=== PATIENT | female | born 1985 | race Caucasian/White ===

== ENCOUNTER 2018-04-30 18:04 | Inpatient (IN) ==
[2018-04-30] MEDS ORDERED: Penicillin G Potassium Inj 5,000,000 UNIT in Sodium Chloride 0.9% Inj 100 ML IV.SIG ONE (18:51)
[2018-04-30] MEDS ORDERED: fentaNYL Citrate Inj 100 MCG/2 ML Ampul IV.PUSH PRN (18:51)
[2018-04-30] MEDS ORDERED: Sod Chloride 0.9% Inj 1,000 ML IV.CONT PRN (18:51)
[2018-04-30] MEDS ORDERED: Oxytocin 30 Units/500ml Premix 30 UNITS/500 ML BAG IV.SIG ONE (18:51)
[2018-04-30] MEDS ORDERED: Naloxone Inj 0.4 MG/ML Vial IV.PUSH PRN (18:51)
[2018-04-30] MEDS ORDERED: Sodium Chlor 0.9% Inj 500 ML IV.SIG PRN (18:51)
[2018-04-30] MEDS ORDERED: Penicillin G Potassium Inj 2,500,000 UNIT in Sodium Chlor 0.9% Inj 100 ML IV.SIG SCH (19:00)
[2018-04-30] MEDS ORDERED: Citric Acid/Sodium Citrate Liq 30 ML UDC PO SCH (19:00)
[2018-04-30 19:55] LABS: Baso % (Auto) 0.3 % (0.0-2.0); Eos % (Auto) 0.4 % (0.0-4.0); Hematocrit 34.1 % (35.0-46.0); Hemoglobin 10.9 gm/dL (11.6-15.3); Lymph # (Auto) 1.9 th/mm3 (1.0-4.8); Lymph % (Auto) 16.6 % (9.0-44.0); Mean Corpuscular Hemoglobin 24.9 pg (27.0-34.0); Mean Corpuscular Volume 77.6 fL (80.0-100.0); Mean Platelet Volume 11.3 fL (7.0-11.0); Mono # (Auto) 0.9 th/mm3 (0.0-0.9); Mono % (Auto) 7.5 % (0.0-8.0); Neut # (Auto) 8.6 th/mm3 (1.8-7.7); Neut % (Auto) 75.2 % (16.0-70.0); Platelet Count 167 th/mm3 (150-450); Red Cell Distribution Width 16.4 % (11.6-17.2); White Blood Count 11.4 th/mm3 (4.0-11.0)
[2018-04-30 20:08] LABS: Alanine Aminotransferase 11 U/L (10-53)
[2018-04-30 20:13] LABS: Alkaline Phosphatase 159 U/L (45-117); Total Protein 7.3 g/dL (6.4-8.2); Uric Acid 6.7 mg/dl (2.6-6.0)
[2018-04-30 20:23] LABS: Albumin 2.6 g/dL (3.4-5.0); Anion Gap 12 meq/L (5-15); Aspartate Aminotransferase 52 U/L (15-37); Blood Urea Nitrogen 13 mg/dL (7-18); Carbon Dioxide 19.1 meq/L (21.0-32.0); Chloride 105 meq/L (98-107); Glomerular Filtration Rate 75 mL/min (>89); Glucose,Random 125 mg/dL (74-106); Sodium 136 meq/L (136-145)
[2018-04-30 20:24] LABS: Potassium 4.7 meq/L (3.5-5.1)
[2018-04-30 21:00] LABS: Bacteria,Urine Rare /hpf; Bilirubin,Urine Negative (Negative); Clarity,Urine Hazy (Clear); Color,Urine Yellow (Yellw/Straw); Glucose,Urine (UA) Negative (Negative); Leukocyte Esterase,Urine Small (Negative); Mucus,Urine Few /lpf (Occasional); Nitrite,Urine Negative (Negative); Specific Gravity,Urine 1.027 (1.002-1.035); Squamous Epithelial Cell,Urine 8 /hpf (0-5)
[2018-04-30] MEDS ORDERED: Influenza (Quadrivalent) Vaccine 0.5 ML Syringe IM ONE (21:00)
[2018-04-30] MEDS ORDERED: Zolpidem Tartrate 5 MG Tablet PO PRN (22:09)
[2018-04-30] MEDS ORDERED: Acetaminophen 325 MG Tablet PO PRN (22:09)
[2018-05-01] MEDS: fentaNYL Citrate Inj 100 MCG/2 ML Ampul IV.PUSH PRN ×2 (02:02→05:05)
[2018-05-01 06:49] LABS: Hematocrit 34.3 % (35.0-46.0); Hemoglobin 10.8 gm/dL (11.6-15.3); Mean Corpuscular HGB Conc 31.6 % (32.0-36.0); Mean Corpuscular Hemoglobin 24.3 pg (27.0-34.0); Mean Corpuscular Volume 77.1 fL (80.0-100.0); Mean Platelet Volume 11.1 fL (7.0-11.0); Platelet Count 154 th/mm3 (150-450); Red Blood Count 4.45 mil/mm3 (4.00-5.30); Red Cell Distribution Width 16.5 % (11.6-17.2); White Blood Count 11.3 th/mm3 (4.0-11.0)
[2018-05-01 06:52] LABS: Alanine Aminotransferase 7 U/L (10-53); Albumin 2.4 g/dL (3.4-5.0); Anion Gap 12 meq/L (5-15); Aspartate Aminotransferase 12 U/L (15-37); Blood Urea Nitrogen 10 mg/dL (7-18); Calcium 9.4 mg/dL (8.5-10.1); Carbon Dioxide 22.2 meq/L (21.0-32.0); Chloride 106 meq/L (98-107); Glomerular Filtration Rate 89 mL/min (>89); Glucose,Random 70 mg/dL (74-106); Potassium 3.9 meq/L (3.5-5.1); Sodium 140 meq/L (136-145)
[2018-05-01 06:54] LABS: Alkaline Phosphatase 149 U/L (45-117); Total Protein 6.5 g/dL (6.4-8.2)
--- NOTE | 2018-05-01 06:55 | P.HPOB ---
History of Present Illness Service: obstetrics Primary Care Physician: Shabbir Bal MD Chief Complaint: postdates labor induction History of Present Illness: 32 yo G1 with EDC 04/23/18 admit 04/30/18 for postdates induction. Patient seen in office for care for total of 14 visits, starting at 14 weeks gestation. is product of IVF, has hx of vasectomy. Pt saw physicians at [facility] prior to coming to [facility] for care. Only abnormality during was diagnosis of trichomonas, was treated and negative test of cure. When seen at office visit no complaints, no contractions , no leakage of fluid, normal movement, no vaginal bleeding or discharge. On presentation to hospital BP was mildly elevated, PIH workup ordered on admission. Asymptomatic on admission. Weeks Gestation:: 41 Para: 0 : 1 - Inpatient Certification I certify that the inpatient services were ordered in accordance with Medicare regulations governing the order. This includes certification that hospital inpatient services are reasonable and necessary and in the case of services not specified as inpatient-only under 42 CFR 419.22(n), that they are appropriately provided as inpatient services in accordance to with the 2-midnight benchmark under 43 CFR 412.3(e) Estimated Total Length of Stay (Days): 6 Plans for Post Hospital Care: Home Review of Systems All other systems reviewed negative except as stated in HPI PMFSH - Medical / Surgical Hx Neg / Unobtainable Medical Problems Denied: Yes - Medical History Medical History: Medical History (Last Updated 05/01/18 @ 06:48 by Carla Branch MD) History of hysteroscopy - Family History Family History: Family History (Last Updated 05/01/18 @ 06:48 by Carla Branch MD) Other No significant family history - Social History I have reviewed the patient's Social History: Yes - Tobacco History Second Hand Smoke Exposure: No Tobacco Use In Past 30 Days: No Smoking Status: Never smoker - Travel History Recent Travel in the [place] Within the Last 8 Weeks: No Recent Travel Out of the Country Within the Last 8 Weeks: No - Immunization History Hx Influenza Vaccine This Season: No Medications and Allergies Active Medications: Active Medications Acetaminophen (Tylenol) 650 mg PO Q6H PRN PRN Reason: HEADACHE Citric Acid/Sodium Citrate (Sodium Citrate/Citric Acid Liq) 30 ml PO VENEER SAWYER JOEY Stop: 05/04/18 18:59 Fentanyl Citrate (Fentanyl Inj) 50 mcg IV.PUSH Q1H PRN PRN Reason: Pain Scale 3 - 5 Last Admin: 05/01/18 05:05 Dose: 50 mcg Fentanyl Citrate (Fentanyl Inj) 100 mcg IV.PUSH Q1H PRN PRN Reason: PAIN SCALE 6 TO 10 Lactated Ringer's (Lr 1000 Ml Inj) 1,000 mls @ 3,000 mls/hr IV.SIG UNSCH PRN PRN Reason: compromise or epidural Lactated Ringer's (Lr 1000 Ml Inj) 1,000 mls @ 125 mls/hr IV.CONT .Q8H JOEY Last Admin: 05/01/18 02:03 Dose: 125 mls/hr Sodium Chloride (Ns Inj) 500 mls @ 1,000 mls/hr IV.SIG UNSCH PRN PRN Reason: SEE LABEL COMMENTS Sodium Chloride (Ns Inj) 1,000 mls @ 100 mls/hr IV.CONT .Q10H PRN PRN Reason: SEE LABEL COMMENTS Penicillin G Potassium 5,000, (000 unit/ Sodium Chloride) 100 mls @ 200 mls/hr IV.SIG ONCE ONE Stop: 05/01/18 08:29 Penicillin G Potassium 2,500, (000 unit/ Sodium Chloride) 100 mls @ 200 mls/hr IV.SIG Q4H JOEY Lidocaine HCl (Xylocaine 1% Inj) 10 ml INFILTRATN PRN PRN PRN Reason: For episiotomy repair Stop: 05/02/18 18:50 Lidocaine HCl (Xylocaine 1% Inj) 0.1 ml I-DERMAL PRN PRN PRN Reason: For IV start Stop: 05/03/18 18:50 Mineral Oil (Muri-Lube Oil) 10 ml TOPICAL PRN PRN PRN Reason: PRN perineal massage Naloxone HCl (Narcan Inj) 0.1 mg IV.PUSH Q2M PRN PRN Reason: for opiate reversal Ondansetron HCl (Zofran Inj) 4 mg IV.PUSH Q6H PRN PRN Reason: NAUSEA Vit/Calcium/Iron/Folic Ac (Stuartnatal Plus 3) 1 tab PO DAILY JOEY Zolpidem Tartrate (Ambien) 5 mg PO HS PRN PRN Reason: INSOMNIA Last Admin: 04/30/18 23:30 Dose: 5 mg Allergies Allergy/AdvReac Type Severity Reaction Status Date / Time No Known Allergies Allergy Verified 02/28/18 09:17 Home Medications Medication Instructions Recorded Confirmed Type vit,[id number] 1 tab PO DAILY 02/28/18 04/30/18 History [PNV 29-1] Exam Vital signs: Vital Signs 04/30/18 18:24 04/30/18 18:25 04/30/18 18:55 Temperature 97.9 F Pulse Rate 122 H 125 H 98 H Respiratory Rate 20 Blood Pressure 142/91 H 137/89 04/30/18 19:00 04/30/18 19:45 04/30/18 20:00 Temperature Pulse Rate 95 H 101 H Respiratory Rate 20 20 Blood Pressure 04/30/18 21:00 04/30/18 21:55 04/30/18 22:00 Temperature Pulse Rate 98 H Respiratory Rate 18 18 Blood Pressure 153/88 H 04/30/18 22:25 04/30/18 23:25 04/30/18 23:30 Temperature Pulse Rate 111 H 87 Respiratory Rate 18 Blood Pressure 04/30/18 23:32 04/30/18 23:33 04/30/18 23:55 Temperature 98.2 F Pulse Rate 100 H 90 Respiratory Rate Blood Pressure 131/71 128/74 05/01/18 00:45 05/01/18 02:24 05/01/18 02:25 Temperature 98.7 F Pulse Rate 90 95 H Respiratory Rate 18 Blood Pressure 05/01/18 03:30 05/01/18 04:25 05/01/18 04:55 Temperature Pulse Rate 86 84 Respiratory Rate 18 Blood Pressure 05/01/18 05:08 05/01/18 05:15 05/01/18 05:25 Temperature Pulse Rate 89 Respiratory Rate 18 Blood Pressure 164/83 H 05/01/18 05:50 05/01/18 06:25 Temperature Pulse Rate 106 H 89 Respiratory Rate Blood Pressure Intake & Output 04/30/18 04/30/18 05/01/18 06:59 18:59 06:59 Intake Total 1000 / 1000 Balance 1000 / 1000 Weight 102 kg Intake: IV 1000 / 1000 LR 1000 mL Inj 1,000 ML @ 125 1000 / 1000 mls/hr IV.CONT .Q8H [facility] Rx#: [id number] - Constitutional no acute distress - Routine HEENT Exam Head: Present: normocephalic, atraumatic Eye: Present: EOMI, conjunctivae pink ENT: Present: mucous membranes moist - Routine Neck Exam Present: supple, full ROM - Routine Chest/Breast/Axilla Exam Chest wall: Absent: tenderness, mass - Routine Respiratory Exam Absent: accessory muscle use, respiratory distress - Routine Cardiovascular Exam Present: RRR. Absent: bradycardia - Routine Abdominal Exam Comments: gravid c/w dates - Routine Extremities Exam Absent: cyanosis, calf tenderness - Routine Skin Exam Present: intact. Absent: erythema - Routine Neurological Exam Present: alert, oriented X3 Results - Labs CBC & Chem 7: 04/30/18 18:45 04/30/18 18:45 Labs: Laboratory Results - last 24 hr 04/30/18 04/30/18 04/30/18 18:30 18:45 18:45 WBC 11.4 H RBC 4.40 Hgb 10.9 L Hct 34.1 L MCV 77.6 L MCH 24.9 L MCHC 32.0 RDW 16.4 Plt Count 167 MPV 11.3 H Prelim Diff (Auto) Slide review pending Neut % (Auto) 75.2 H Lymph % (Auto) 16.6 [place] % (Auto) 7.5 Eos % (Auto) 0.4 Baso % (Auto) 0.3 Neut # (Auto) 8.6 H Lymph # (Auto) 1.9 [place] # (Auto) 0.9 Eos # (Auto) 0.0 Baso # (Auto) 0.0 WBC Differential . Diff Scan Auto diff confirmed Differential Comment . Platelet Morphology Giant H Sodium Potassium Chloride Carbon Dioxide Anion Gap BUN Creatinine Estimated GFR Random Glucose Uric Acid Calcium Total Bilirubin AST ALT Alkaline Phosphatase Total Protein Albumin Urine Color Yellow Urine Clarity Hazy H Urine pH 5.0 Ur Specific [place] 1.027 Urine Protein 100 H Urine Glucose (UA) Negative Urine Ketones Negative Urine Occult Blood Moderate H Urine Nitrate Negative Urine Bilirubin Negative Urine Urobilinogen Less than 2 Ur Leukocyte Esterase Small H Urine RBC 22 H Urine WBC 6 H Ur Squamous Epith Cells 8 Urine Bacteria Rare H Urine Mucus Few H Micro UA Comment Culture not ind Ur Microscopic Review Not Reportable Urine Culture Comments Culture not ind Blood Type O Positive Blood Type Recheck Required 04/30/18 18:45 WBC RBC Hgb Hct MCV MCH MCHC RDW Plt Count MPV Prelim Diff (Auto) Neut % (Auto) Lymph % (Auto) [place] % (Auto) Eos % (Auto) Baso % (Auto) Neut # (Auto) Lymph # (Auto) [place] # (Auto) Eos # (Auto) Baso # (Auto) WBC Differential Diff Scan Differential Comment Platelet Morphology Sodium 136 Potassium 4.7 Chloride 105 Carbon Dioxide 19.1 L Anion Gap 12 BUN 13 Creatinine 0.87 Estimated GFR 75 L Random Glucose 125 H Uric Acid 6.7 H Calcium 9.0 Total Bilirubin 0.2 AST 52 H ALT 11 Alkaline Phosphatase 159 H Total Protein 7.3 Albumin 2.6 L Urine Color Urine Clarity Urine pH Ur Specific [place] Urine Protein Urine Glucose (UA) Urine Ketones Urine Occult Blood Urine Nitrate Urine Bilirubin Urine Urobilinogen Ur Leukocyte Esterase Urine RBC Urine WBC Ur Squamous Epith Cells Urine Bacteria Urine Mucus Micro UA Comment Ur Microscopic Review Urine Culture Comments Blood Type Blood Type Recheck Group B Strep: Positive Caprini VTE Risk Assessment Caprini VTE Risk Assessment: No/Low Risk (score <= 1) VTE Pharmacological Exception Reason: Epidural catheter Caprini Risk Assessment Model: Point Value = 1 Point Value = 2 Point Value = 3 Point Value = 5 Age 41-60 Minor surgery BMI > 25 kg/m2 Swollen legs Varicose veins or History of unexplained or recurrent spontaneous Oral contraceptives or hormone replacement Sepsis (< 1 month) Serious lung disease, including pneumonia (< 1 month) Abnormal pulmonary function Acute myocardial infarction Congestive heart failure (< 1 month) History of inflammatory bowel disease Medical patient at bed rest Age 61-74 Arthroscopic surgery Major open surgery (> 45 min) Laparoscopic surgery (> 45 min) Malignancy Confined to bed (> 72 hours) Immobilizing plaster cast Central venous access Age >= 75 History of VTE Family history of VTE Factor V Leiden Prothrombin [id number] Lupus anticoagulant Anticardiolipin antibodies Elevated serum homocysteine Heparin-induced thrombocytopenia Other congenital or acquired thrombophilia Stroke (< 1 month) Elective arthroplasty Hip, pelvis, or leg fracture Acute spinal cord injury (< 1 month) Prophylaxis Regimen: Total Risk Factor Score Risk Level Prophylaxis Regimen 0-1 Low Early ambulation 2 Moderate Order ONE of the following: *Sequential Compression Device (SCD) *Heparin 5000 units SQ BID 3-4 Higher Order ONE of the following medications: *Heparin 5000 units SQ TID *Enoxaparin/Lovenox 40 mg SQ daily (WT < 150 kg, CrCl > 30 mL/min) *Enoxaparin/Lovenox 30 mg SQ daily (WT < 150 kg, CrCl > 10-29 mL/min) *Enoxaparin/Lovenox 30 mg SQ BID (WT < 150 kg, CrCl > 30 mL/min) AND/OR *Sequential Compression Device (SCD) 5 or more Highest Order ONE of the following medications: *Heparin 5000 units SQ TID (Preferred with Epidurals) *Enoxaparin/Lovenox 40 mg SQ daily (WT < 150 kg, CrCl > 30 mL/min) *Enoxaparin/Lovenox 30 mg SQ daily (WT < 150 kg, CrCl > 10-29 mL/min) *Enoxaparin/Lovenox 30 mg SQ BID (WT < 150 kg, CrCl > 30 mL/min) AND *Sequential Compression Device (SCD) Assessment and Plan - Diagnosis (1) 41 weeks gestation of Code(s): Z3A.41 - 41 weeks gestation of Status: Acute (2) conceived through in vitro fertilization Code(s): O09.819 - Supervision of resulting from assisted reproductive technology, unspecified trimester Status: Chronic - Plan 32 yo G1 admitted 04/30/18 at 41wks by IVF (EDC 04/23/18) for labor induction due to postdates. 1) postdates IOL: cervidil overnight, will re-evaluate for additional induction methods as needed in AM; pt aware that cervical exam very unfavorable and induction may be long process, also possibility of ; consents signed 2) GBS positive - for PCN ppx 3) product of IVF: female embryo, had negative testing on embryo at [facility] prior to transfer 4) hx of trichomonas in : s/p treatment with negative test of cure 5) mild range BPs on admit: PIH workup ordered, no signs/symptoms of severity at this time, continue to monitor closely 6) status: female, vertex, 8/8 BPP in office 04/28/18; anterior placenta, vertex fetus; SANNA 11cm. dispo: not meeting criteria; anticipate 2-3d PP Discharge Planning: routine, 2-3d PP (2) conceived through in vitro fertilization Qualifiers: Trimester: third trimester Qualified Code(s): O09.813 - Supervision of resulting from assisted reproductive technology, third trimester
[2018-05-01] MEDS ORDERED: Penicillin G Potassium Inj 5,000,000 UNIT in Sodium Chloride 0.9% Inj 100 ML IV.SIG ONE (08:00)
[2018-05-01] MEDS ORDERED: Penicillin G Potassium Inj 2,500,000 UNIT in Sodium Chlor 0.9% Inj 100 ML IV.SIG SCH (12:00)
[2018-05-01] MEDS ORDERED: Oxytocin 30 Units/500ml Premix 30 UNITS/500 ML BAG IV.CONT PRN (13:21)
[2018-05-01] MEDS: Prenatal Vit/Ca/Iron/Folic Acid Tablet PO SCH (13:47)
[2018-05-01] MEDS ORDERED: fentaNYL 2MCG-Bupiv 0.125% Epi 150 ML EPIDURAL ONE (14:58)
[2018-05-01] MEDS: fentaNYL 2MCG-Bupiv 0.125% Epi 150 ML EPIDURAL PRN (15:25)
[2018-05-01] MEDS ORDERED: Sodium Chlor 0.9% Inj 10 ML ONE (15:34)
[2018-05-01] MEDS ORDERED: Lidocaine PF 1% Inj 5 ML Vial ONE (15:34)
[2018-05-01] MEDS ORDERED: Lidocaaine 1.5%/Epinephrine 1:200,000 PF Inj 5 ML Amp ONE (15:35)
[2018-05-01] MEDS ORDERED: fentaNYL Citrate Inj 100 MCG/2 ML Ampul EPIDURAL ONE (16:00)
[2018-05-01] MEDS: Penicillin G Potassium Inj 2,500,000 UNIT in Sodium Chlor 0.9% Inj 100 ML IV.SIG SCH ×2 (17:03→20:54)
--- NOTE | 2018-05-01 17:13 | P.OBLABOR ---
Subjective Interval history: Seen at 1pm and comfortable with occasioanl UC's. Strip category 1 at that time. AROM 3 cm/80/-2 and noted moderate thick meconium. started on pitocin 04/15/19 and birthing. Eventually got epidural and now on side. Objective Vital Signs: Vital Signs - 8 hr 05/01/18 09:25 05/01/18 10:58 05/01/18 11:56 Temperature Pulse Rate 100 H 101 H 110 H Respiratory Rate 18 20 Blood Pressure 147/82 H 138/81 05/01/18 12:45 05/01/18 12:49 05/01/18 12:50 Temperature Pulse Rate 81 104 H Respiratory Rate 18 Blood Pressure 05/01/18 12:55 05/01/18 13:00 05/01/18 13:20 Temperature 98.7 F Pulse Rate 104 H 103 H Respiratory Rate Blood Pressure 05/01/18 13:50 05/01/18 14:00 05/01/18 14:40 Temperature Pulse Rate 108 H 100 H Respiratory Rate 18 Blood Pressure 149/95 H 05/01/18 14:47 05/01/18 15:00 05/01/18 16:00 Temperature 98.0 F Pulse Rate 108 H 122 H Respiratory Rate 18 18 Blood Pressure 145/96 H 118/64 05/01/18 16:10 05/01/18 16:28 05/01/18 17:00 Temperature 98.0 F Pulse Rate 108 H 133 H 106 H Respiratory Rate 18 Blood Pressure 153/104 H 101/51 L 109/58 L Objective: Pelvic Exam: strip category 2 minimal BTBV at this (likely sleep cycle) better earlier. 4-5/90/-2 and is ROP EWF is 8 pounds pelvis is unproven clinically adequate but need to see some descent. Assessment and Plan - Diagnosis (1) 41 weeks gestation of Code(s): Z3A.41 - 41 weeks gestation of Status: Acute (2) conceived through in vitro fertilization Code(s): O09.819 - Supervision of resulting from assisted reproductive technology, unspecified trimester Status: Chronic - Plan 32 yo G1 admitted 04/30/18 at 41wks by IVF (EDC 04/23/18) for labor induction due to postdates. 1) postdates IOL: cervidil overnight, will re-evaluate for additional induction methods as needed in AM; pt aware that cervical exam very unfavorable and induction may be long process, also possibility of ; consents signed 2) GBS positive - for PCN ppx 3) product of IVF: female embryo, had negative testing on embryo at [facility] prior to transfer 4) hx of trichomonas in : s/p treatment with negative test of cure 5) mild range BPs on admit: PIH workup ordered, no signs/symptoms of severity at this time, continue to monitor closely 6) status: female, vertex, 8/8 BPP in office 04/28/18; anterior placenta, vertex fetus; SANNA 11cm. dispo: not meeting criteria; anticipate 2-3d PP 05/01/18 dilating on pitocin but yet to descent turning frequently to help rotate to OA strip bears watching Discharge Planning: routine, 2-3d PP (2) conceived through in vitro fertilization Qualifiers: Trimester: third trimester Qualified Code(s): O09.813 - Supervision of resulting from assisted reproductive technology, third trimester
[2018-05-02] MEDS: fentaNYL 2MCG-Bupiv 0.125% Epi 150 ML EPIDURAL PRN (01:15)
[2018-05-02] MEDS: Penicillin G Potassium Inj 2,500,000 UNIT in Sodium Chlor 0.9% Inj 100 ML IV.SIG SCH ×3 (01:25→13:08)
[2018-05-02] MEDS ORDERED: Lidocaine PF 1.5% Inj 20 ML Ampule ONE (03:32)
[2018-05-02] MEDS ORDERED: ceFAZolin 2 GM Premix Inj 2 GM/50 ML PIGGYBACK IV.SIG PRN (03:42)
[2018-05-02] MEDS ORDERED: Citric Acid/Sodium Citrate Liq 30 ML UDC PO SCH (03:45)
--- NOTE | 2018-05-02 04:52 | P.OBGPN ---
called at ~3:30 with report that axillary temp 100, no further dilation or descent and decision made to call arrest of descent and proceed to back. Parents were appraised earlier of possibility, risks, necessity and expected outcome. Strip was still reassuring.
[2018-05-02] MEDS ORDERED: Oxytocin 30 Units/500ml Premix 30 UNITS/500 ML BAG IV.SIG ONE (04:56)
[2018-05-02] MEDS ORDERED: Zolpidem Tartrate 5 MG Tablet PO PRN (04:56)
[2018-05-02] MEDS ORDERED: Simethicone 80 MG Chew Tablet PO PRN (04:56)
--- NOTE | 2018-05-02 04:56 | P.OBDELI ---
Procedure Note - Pre Op Diagnosis (1) Arrest of descent, delivered, current hospitalization (2) 41 weeks gestation of - Post Op Diagnosis (1) delivery delivered Performed by: Isabella Coffey MD Procedure: Primary Low Transverse Section Indication for Delivery: Other (arrest of descent) Informed Consent Obtained: For anesthesia, For procedure Confirmed Correct: Patient, Procedure, Site, Time-out taken Anesthesia: Epidural Medication Prior to Procedure: As documented in eMAR Monitoring During Procedure: Blood pressure monitoring, case monitor, Pulse oximetry Urinary Catheter: Inserted using sterile technique, To dependent drainage Sterile Preparation: Duraprep, In usual fashion Position: Supine with wedge to right side - Operative Features Skin Incision: Pfannenstiel Membranes Ruptured: Previously, Appearance of fluid (clear despite presence of meconium at initial AROM at noon) Presentation: Occiput anterior Status of Infant: Viable, Cord blood, Nursery present Placenta Delivered: Intact Medications: Antibiotics, Oxytocin Estimated blood loss (mL): 500 Procedure Tolerated: Well Maternal Complications: Fever Maternal Condition: Stable Baby Condition: Stable - Infant : Female Infant Female A Infant Delivery Date: 05/02/18 Infant Delivery Time: 04:55 Weight: 3.4 kg score (1 min): 8 score (5 min): 9
--- NOTE | 2018-05-02 05:41 | MP ---
cc: Isabella Coffey MD DATE OF OPERATION: 05/02/2018 PREOPERATIVE DIAGNOSES: A 41-week intrauterine with induction, thin meconium, arrest of descent and mild temperature. POSTOPERATIVE DIAGNOSES: A 41-week intrauterine with induction, thin meconium, arrest of descent, mild temperature, delivered. PROCEDURE PERFORMED: Primary low transverse segment section. ANESTHESIA: Epidural with Duramorph. SURGEON: Isabella Coffey MD IT APPLICATIONS ANALYST: Jinny Brady. FINDINGS: A living female was delivered from OA position with what appeared to be clear fluid after earlier meconium and a body cord. Apgars were 8 at 1 and 9 at 5. The cord had delayed 45-second clamping before it was cut. Baby weighed 8 pounds 10 ounces, was slightly warm. The placenta was delivered from anterior position intact with 3-vessel cord. Estimated blood loss was about 500 mL. Sponge, instrument and needle counts were correct. Anatomy was unremarkable. Mom and baby tolerated the procedure well and went to the recovery room stable. DESCRIPTION OF PROCEDURE: The patient and had been appraised earlier in the night of the possibility of a and what would be the indication should we call that. At 3:30, her nurse called saying that she had no further dilation or descent and was developing a low-grade fever. The decision was made to proceed with section and she was taken to the back where her epidural was reinforced. Her Vanegas catheter was already in place. Sequential stockings were put on. She received 3 grams of Ancef IV. She was prepped and draped in the usual sterile fashion. A timeout was performed. After assuring adequate analgesia, a Pfannenstiel incision was made with a knife and carried down through to the rectus fascia using the Bovie on cutting. The rectus fascia was then incised in an elliptical fashion and taken sharply off the rectus muscle. The rectus muscle was bluntly and the parietal peritoneum bluntly entered. A bladder flap was created off the lower uterine segment and an incision made into the intrauterine cavity. This was extended vertically in a blunt fashion and then the was delivered with Kiwi assistance. She had a spontaneous cry on the abdomen. The cord was allowed to pulse, but not milked for 45 seconds, and then it was clamped x2, cut, and she was handed to the neonatology team and attending. Cord blood was obtained. The placenta was then removed. The uterus was exteriorized, cleaned with a lap sponge, and closed with chromic in a running interlocking fashion with a second horizontal imbricating suture. The incision was noted to be hemostatic and the anatomy was noted to be unremarkable. The uterus was replaced in the abdominal cavity and irrigation was performed. The incision was rechecked for hemostasis. Then, the rectus muscle was approximated loosely with care to avoid underlying structures. The fascia was closed with #1 Vicryl. The subcutaneous layer was closed with 3-0 plain and the skin was closed with a Monocryl on a Randal needle. Steri-Strips and Primapore were placed. Sponge, instrument, and needle count were correct. She tolerated the procedure well and she went to the recovery room in stable condition. MD CAIN Blandon/abdon , 05:02 AM , 05:09 AM
[2018-05-02] MEDS ORDERED: Oxytocin 30 Units/500ml Premix 30 UNITS/500 ML BAG ONE (05:44)
[2018-05-02] MEDS ORDERED: Naloxone Inj 0.4 MG/ML Vial IV.PUSH PRN (06:36)
[2018-05-02] MEDS: Prenatal Vit/Ca/Iron/Folic Acid Tablet PO SCH (09:44)
[2018-05-02] MEDS: Senna/Docusate Sodium 8.6/50 MG Tablet PO PRN ×2 (09:45→21:52)
[2018-05-02] MEDS ORDERED: Oxytocin 30 Units/500ml Premix 30 UNITS/500 ML BAG IV.SIG PRN (09:56)
--- NOTE | 2018-05-02 14:16 | P.PNOB ---
Subjective Post op day: 0 Interval history: doing remarkable well no pain nursing Objective Vital Signs/I&O: Vital Signs 05/01/18 14:40 05/01/18 14:47 05/01/18 15:00 Temperature 98.0 F Pulse Rate 100 H 108 H Respiratory Rate 18 Blood Pressure 145/96 H 05/01/18 16:00 05/01/18 16:10 05/01/18 16:28 Temperature Pulse Rate 122 H 108 H 133 H Respiratory Rate 18 18 Blood Pressure 118/64 153/104 H 101/51 L 05/01/18 17:00 05/01/18 17:10 05/01/18 17:25 Temperature 98.0 F Pulse Rate 106 H 94 H 118 H Respiratory Rate Blood Pressure 109/58 L 108/49 L 140/81 05/01/18 17:30 05/01/18 18:01 05/01/18 18:25 Temperature Pulse Rate 122 H 117 H Respiratory Rate Blood Pressure 125/79 122/72 05/01/18 19:40 05/01/18 19:45 05/01/18 19:49 Temperature 98.0 F Pulse Rate 109 H 118 H Respiratory Rate 18 Blood Pressure 132/77 122/68 05/01/18 19:50 05/01/18 19:55 05/01/18 20:00 Temperature Pulse Rate 118 H 124 H 169 H Respiratory Rate Blood Pressure 05/01/18 20:10 05/01/18 20:29 05/01/18 20:30 Temperature Pulse Rate 132 H 109 H 109 H Respiratory Rate 18 Blood Pressure 146/78 H 142/102 H 05/01/18 20:35 05/01/18 20:40 05/01/18 20:45 Temperature Pulse Rate 112 H 114 H 111 H Respiratory Rate Blood Pressure 05/01/18 20:55 05/01/18 20:56 05/01/18 21:01 Temperature Pulse Rate 98 H 114 H Respiratory Rate 18 Blood Pressure 146/83 H 05/01/18 21:15 05/01/18 21:31 05/01/18 21:35 Temperature Pulse Rate 98 H 104 H 103 H Respiratory Rate Blood Pressure 142/84 H 05/01/18 21:40 05/01/18 21:45 05/01/18 21:50 Temperature Pulse Rate 99 H 94 H 100 H Respiratory Rate Blood Pressure 05/01/18 22:05 05/01/18 22:12 05/01/18 22:30 Temperature 97.4 F L Pulse Rate 109 H 104 H Respiratory Rate 18 Blood Pressure 143/88 H 132/81 05/01/18 22:45 05/01/18 23:00 05/01/18 23:20 Temperature 98.4 F Pulse Rate 110 H Respiratory Rate 16 18 Blood Pressure 137/81 05/01/18 23:30 05/02/18 00:00 05/02/18 00:11 Temperature Pulse Rate 107 H 103 H Respiratory Rate 18 Blood Pressure 134/72 121/71 05/02/18 00:30 05/02/18 01:00 05/02/18 01:23 Temperature Pulse Rate 114 H 110 H Respiratory Rate 18 18 Blood Pressure 139/94 H 139/77 05/02/18 01:24 05/02/18 01:30 05/02/18 02:00 Temperature 97.7 F Pulse Rate 114 H Respiratory Rate 18 Blood Pressure 142/83 H 05/02/18 02:05 05/02/18 02:10 05/02/18 02:31 Temperature 98.3 F Pulse Rate 117 H 109 H Respiratory Rate Blood Pressure 128/71 150/75 H 05/02/18 03:01 05/02/18 03:15 05/02/18 03:20 Temperature 98.4 F 100.0 F H Pulse Rate 110 H Respiratory Rate Blood Pressure 155/66 H 05/02/18 03:31 05/02/18 05:00 05/02/18 05:11 Temperature 97.8 F Pulse Rate 117 H 98 H 100 H Respiratory Rate 20 18 Blood Pressure 149/90 H 106/55 L 103/52 L 05/02/18 05:17 05/02/18 05:31 05/02/18 05:45 Temperature 97.6 F Pulse Rate 103 H 102 H Respiratory Rate 16 18 Blood Pressure 100/58 L 101/53 L 05/02/18 06:25 05/02/18 11:00 Temperature Pulse Rate 93 H 105 H Respiratory Rate 17 Blood Pressure 138/81 144/87 H Intake & Output 05/01/18 05/02/18 05/02/18 18:59 06:59 18:59 Intake Total 2099 1100 / 1100 Balance 2099 1100 / 1100 Intake: IV 2099 1100 / 1100 LR 1000 mL Inj 1,000 ML @ 125 2000 / 2000 1000 / 1000 mls/hr IV.CONT .Q8H [facility] Rx#: [id number] Pfizerpen-G Inj 2,500,000 UNIT 100 / 100 100 / 100 In NS Inj 100 ML @ 200 mls/hr IV.SIG Q4H [facility] Rx#:[id number] Result Diagrams: 05/01/18 05:43 05/01/18 05:43 Objective Remarks: GENERAL: Well-nourished, well-developed patient. CARDIOVASCULAR: Regular rate and rhythm without murmurs, gallops, or rubs. RESPIRATORY: Breath sounds equal bilaterally. No accessory muscle use. ABDOMEN/GI: Abdomen soft, non-tender, bowel sounds present. bandage Clean, dry and intact. Fundus: Firm, non-tender at umbilicus. GENITOURINARY: Light to moderate bleeding. EXTREMITIES: No cyanosis or edema, non-tender, without signs of DVT. Medications and IVs: Active Medications Acetaminophen (Tylenol) 650 mg PO Q6H PRN PRN Reason: HEADACHE Citric Acid/Sodium Citrate (Sodium Citrate/Citric Acid Liq) 30 ml PO DIFFUSER OPERATOR [facility] Stop: 05/04/18 18:59 Citric Acid/Sodium Citrate (Sodium Citrate/Citric Acid Liq) 30 ml PO DIFFUSER OPERATOR [facility] Stop: 05/06/18 03:44 Diphenhydramine HCl (Benadryl Inj) 25 mg IV.PUSH Q6H PRN PRN Reason: MILD TO MODERATE ITCHING Stop: 05/03/18 06:35 Diphenhydramine HCl (Benadryl) 50 mg PO Q6H PRN PRN Reason: MILD TO MODERATE ITCHING Stop: 05/03/18 06:35 Diphtheria/Pertussis/Tetanus Vacc (Boostrix Vaccine Inj) 0.5 ml IM .ONCE ONE Stop: 05/03/18 16:01 Ephedrine Sulfate (Ephedrine/Ns Syringe) 10 mg IV.PUSH UNSCH PRN PRN Reason: SEE LABEL COMMENTS Stop: 05/02/18 15:52 Fentanyl Citrate (Fentanyl Inj) 50 mcg IV.PUSH Q1H PRN PRN Reason: Pain Scale 3 - 5 Last Admin: 05/01/18 05:05 Dose: 50 mcg Fentanyl Citrate (Fentanyl Inj) 100 mcg IV.PUSH Q1H PRN PRN Reason: PAIN SCALE 6 TO 10 Lactated Ringer's (Lr 1000 Ml Inj) 1,000 mls @ 3,000 mls/hr IV.SIG UNSCH PRN PRN Reason: compromise or epidural Lactated Ringer's (Lr 1000 Ml Inj) 1,000 mls @ 125 mls/hr IV.CONT .Q8H [facility] Last Admin: 05/02/18 13:07 Dose: Not Given Sodium Chloride (Ns Inj) 500 mls @ 1,000 mls/hr IV.SIG UNSCH PRN PRN Reason: SEE LABEL COMMENTS Sodium Chloride (Ns Inj) 1,000 mls @ 100 mls/hr IV.CONT .Q10H PRN PRN Reason: SEE LABEL COMMENTS Oxytocin (Pitocin 30 Units/Ns 500 Ml Premix) 30 units in 500 mls @ 2 mls/hr IV.CONT TITRATE PRN; Protocol PRN Reason: For induction of labor Last Admin: 05/01/18 13:45 Dose: 2 milliunit/min, 2 mls/hr Penicillin G Potassium 2,500, (000 unit/ Sodium Chloride) 100 mls @ 200 mls/hr IV.SIG Q4H [facility] Last Admin: 05/02/18 13:08 Dose: Not Given Fentanyl/Bupivacaine/Sodium Chlor (Fentanyl 2 Mcg-Bupiv 0.125% Epi) 150 mls @ 12 mls/hr EPIDURAL PRN PRN PRN Reason: for Labor Pain Last Admin: 05/02/18 01:15 Dose: 12 mls/hr Cefazolin Sodium/Dextrose (Ancef 2 Gm Premix Inj) 2 gm in 50 mls @ 100 mls/hr IV.SIG DIFFUSER OPERATOR PRN PRN Reason: DIFFUSER OPERATOR Stop: 05/06/18 03:41 Lactated Ringer's (Lr 1000 Ml Inj) 1,000 mls @ 150 mls/hr IV.CONT .Q6H40M [facility] Last Admin: 05/02/18 13:08 Dose: Not Given Lactated Ringer's (Lr 1000 Ml Inj) 1,000 mls @ 100 mls/hr IV.CONT .Q10H [facility] Stop: 05/03/18 05:55 Last Admin: 05/02/18 13:07 Dose: 100 mls/hr Oxytocin (Pitocin 30 Units/Ns 500 Ml Premix) 30 units in 500 mls @ 100 mls/hr IV.SIG UNSCH PRN PRN Reason: Heavy bleeding Ibuprofen (Motrin) 800 mg PO Q8H PRN PRN Reason: cramping Last Admin: 05/02/18 13:39 Dose: 800 mg Ketorolac Tromethamine (Toradol Inj) 30 mg IM Q6H PRN PRN Reason: SEE LABEL COMMENTS Lidocaine HCl (Xylocaine 1% Inj) 10 ml INFILTRATN PRN PRN PRN Reason: For episiotomy repair Stop: 05/02/18 18:50 Lidocaine HCl (Xylocaine 1% Inj) 0.1 ml I-DERMAL PRN PRN PRN Reason: For IV start Stop: 05/03/18 18:50 Measles/Mumps/Rubella Vaccine Live (M-M-R Ii Vaccine Inj) 0.5 ml SQ .ONCE ONE Stop: 05/03/18 16:01 Mineral Oil (Muri-Lube Oil) 10 ml TOPICAL PRN PRN PRN Reason: PRN perineal massage Miscellaneous Information (Misc Information) 1 each OTHER UNSCH PRN PRN Reason: SEE LABEL COMMENTS Stop: 05/02/18 15:52 Miscellaneous Information (Misc Information) 1 each OTHER UNSCH PRN PRN Reason: SEE LABEL COMMENTS Stop: 05/02/18 15:52 Miscellaneous Information (Misc Nursing Information) 1 each OTHER UNSCH PRN PRN Reason: SEE LABEL COMMENTS Stop: 05/03/18 06:35 Miscellaneous Information (Misc Nursing Information) 1 each OTHER UNSCH PRN PRN Reason: SEE LABEL COMMENTS Stop: 05/03/18 06:35 Naloxone HCl (Narcan Inj) 0.1 mg IV.PUSH Q2M PRN PRN Reason: for opiate reversal Naloxone HCl (Narcan Inj) 0.4 mg IV.PUSH UNSCH PRN PRN Reason: SEE LABEL COMMENTS Stop: 05/03/18 06:35 Ondansetron HCl (Zofran Inj) 4 mg IV.PUSH Q6H PRN PRN Reason: NAUSEA Ondansetron HCl (Zofran Inj) 4 mg IV.PUSH Q6H PRN PRN Reason: NAUSEA OR VOMITING Oxycodone/Acetaminophen (Percocet 5/325 Mg) 1 tab PO Q4H PRN PRN Reason: PAIN SCALE 3 TO 5 Last Admin: 05/02/18 13:39 Dose: 1 tab Oxycodone/Acetaminophen (Percocet 5/325 Mg) 2 tab PO Q4H PRN PRN Reason: PAIN SCALE 6 TO 10 Vit/Calcium/Iron/Folic Ac (Stuartnatal Plus 3) 1 tab PO DAILY [facility] Last Admin: 05/02/18 09:44 Dose: 1 tab Senna/Docusate Sodium (Francine-Colace) 2 tab PO Q12H PRN PRN Reason: CONSTIPATION Last Admin: 05/02/18 09:45 Dose: 2 tab Simethicone (Mylicon Chew) 80 mg PO QID PRN PRN Reason: FLATULENCE Sodium Chloride (Ns Flush) 2 ml IV.FLUSH BID [facility] Last Admin: 05/02/18 13:07 Dose: Not Given Sodium Chloride (Ns Flush) 2 ml IV.FLUSH PRN PRN PRN Reason: FLUSH AFTER USING IV ACCESS Zolpidem Tartrate (Ambien) 5 mg PO HS PRN PRN Reason: INSOMNIA Last Admin: 04/30/18 23:30 Dose: 5 mg Zolpidem Tartrate (Ambien) 5 mg PO HS PRN PRN Reason: INSOMNIA Assessment and Plan - Diagnosis (1) 41 weeks gestation of Code(s): Z3A.41 - 41 weeks gestation of Status: Acute (2) conceived through in vitro fertilization Code(s): O09.819 - Supervision of resulting from assisted reproductive technology, unspecified trimester Status: Chronic - Plan 32 yo G1 admitted 04/30/18 at 41wks by IVF (EDC 04/23/18) for labor induction due to postdates. 1) postdates IOL: cervidil overnight, will re-evaluate for additional induction methods as needed in AM; pt aware that cervical exam very unfavorable and induction may be long process, also possibility of ; consents signed 2) GBS positive - for PCN ppx 3) product of IVF: female embryo, had negative testing on embryo at [facility] prior to transfer 4) hx of trichomonas in : s/p treatment with negative test of cure 5) mild range BPs on admit: PIH workup ordered, no signs/symptoms of severity at this time, continue to monitor closely 6) status: female, vertex, 8/8 BPP in office 04/28/18; anterior placenta, vertex fetus; SANNA 11cm. dispo: not meeting criteria; anticipate 2-3d PP 05/01/18 dilating on pitocin but yet to descent turning frequently to help rotate to OA strip bears watching 05/02/18 doing well after section for failure to descend 10 hours ago. anticipate discharge POD 2-3 Discharge Planning: routine, 2-3d PP (2) conceived through in vitro fertilization Qualifiers: Trimester: third trimester Qualified Code(s): O09.813 - Supervision of resulting from assisted reproductive technology, third trimester
[2018-05-03 05:23] LABS: Baso % (Auto) 0.3 % (0.0-2.0); Eos # (Auto) 0.1 th/mm3 (0.0-0.4); Eos % (Auto) 0.7 % (0.0-4.0); Hematocrit 29.6 % (35.0-46.0); Hemoglobin 9.6 gm/dL (11.6-15.3); Lymph # (Auto) 1.8 th/mm3 (1.0-4.8); Lymph % (Auto) 16.1 % (9.0-44.0); Mean Corpuscular HGB Conc 32.3 % (32.0-36.0); Mean Corpuscular Hemoglobin 24.9 pg (27.0-34.0); Mean Platelet Volume 11.1 fL (7.0-11.0); Mono # (Auto) 0.9 th/mm3 (0.0-0.9); Neut # (Auto) 8.2 th/mm3 (1.8-7.7); Neut % (Auto) 74.9 % (16.0-70.0); Platelet Count 142 th/mm3 (150-450); Red Blood Count 3.85 mil/mm3 (4.00-5.30); Red Cell Distribution Width 16.7 % (11.6-17.2); White Blood Count 10.9 th/mm3 (4.0-11.0)
[2018-05-03 08:05] VITALS: RESP 18
[2018-05-03] MEDS: Prenatal Vit/Ca/Iron/Folic Acid Tablet PO SCH (10:33)
--- NOTE | 2018-05-03 10:44 | P.PNOB ---
Subjective Post op day: 1 Interval history: POD#1; s/P CD; Stable, doing well Objective Vital Signs/I&O: Vital Signs 05/02/18 11:00 05/02/18 20:30 05/02/18 23:30 Temperature 97.8 F 97.8 F Pulse Rate 105 H 83 86 Respiratory Rate 18 18 Blood Pressure 144/87 H 142/94 H 146/96 H 05/03/18 04:45 05/03/18 08:00 Temperature 98.0 F 97.7 F Pulse Rate 85 83 Respiratory Rate 20 18 Blood Pressure 129/78 132/81 Result Diagrams: 05/03/18 04:43 05/01/18 05:43 Objective Remarks: GENERAL: Well-nourished, well-developed patient. CARDIOVASCULAR: Regular rate and rhythm without murmurs, gallops, or rubs. RESPIRATORY: Breath sounds equal bilaterally. No accessory muscle use. ABDOMEN/GI: Abdomen soft, non-tender, bowel sounds present. Incision: Clean, dry and intact. Fundus: Firm, non-tender at umbilicus. GENITOURINARY: Light to moderate bleeding. EXTREMITIES: No cyanosis or edema, non-tender, without signs of DVT. Medications and IVs: Active Medications Acetaminophen (Tylenol) 650 mg PO Q6H PRN PRN Reason: HEADACHE Citric Acid/Sodium Citrate (Sodium Citrate/Citric Acid Liq) 30 ml PO GANG SAWYER [facility] Stop: 05/04/18 18:59 Citric Acid/Sodium Citrate (Sodium Citrate/Citric Acid Liq) 30 ml PO GANG SAWYER [facility] Stop: 05/06/18 03:44 Diphtheria/Pertussis/Tetanus Vacc (Boostrix Vaccine Inj) 0.5 ml IM .ONCE ONE Stop: 05/03/18 16:01 Fentanyl Citrate (Fentanyl Inj) 50 mcg IV.PUSH Q1H PRN PRN Reason: Pain Scale 3 - 5 Last Admin: 05/01/18 05:05 Dose: 50 mcg Fentanyl Citrate (Fentanyl Inj) 100 mcg IV.PUSH Q1H PRN PRN Reason: PAIN SCALE 6 TO 10 Lactated Ringer's (Lr 1000 Ml Inj) 1,000 mls @ 3,000 mls/hr IV.SIG UNSCH PRN PRN Reason: compromise or epidural Lactated Ringer's (Lr 1000 Ml Inj) 1,000 mls @ 125 mls/hr IV.CONT .Q8H [facility] Last Admin: 05/03/18 03:13 Dose: Not Given Sodium Chloride (Ns Inj) 500 mls @ 1,000 mls/hr IV.SIG UNSCH PRN PRN Reason: SEE LABEL COMMENTS Sodium Chloride (Ns Inj) 1,000 mls @ 100 mls/hr IV.CONT .Q10H PRN PRN Reason: SEE LABEL COMMENTS Oxytocin (Pitocin 30 Units/Ns 500 Ml Premix) 30 units in 500 mls @ 2 mls/hr IV.CONT TITRATE PRN; Protocol PRN Reason: For induction of labor Last Admin: 05/01/18 13:45 Dose: 2 milliunit/min, 2 mls/hr Fentanyl/Bupivacaine/Sodium Chlor (Fentanyl 2 Mcg-Bupiv 0.125% Epi) 150 mls @ 12 mls/hr EPIDURAL PRN PRN PRN Reason: for Labor Pain Last Admin: 05/02/18 01:15 Dose: 12 mls/hr Cefazolin Sodium/Dextrose (Ancef 2 Gm Premix Inj) 2 gm in 50 mls @ 100 mls/hr IV.SIG GANG SAWYER PRN PRN Reason: GANG SAWYER Stop: 05/06/18 03:41 Lactated Ringer's (Lr 1000 Ml Inj) 1,000 mls @ 150 mls/hr IV.CONT .Q6H40M [facility] Last Admin: 05/02/18 13:08 Dose: Not Given Oxytocin (Pitocin 30 Units/Ns 500 Ml Premix) 30 units in 500 mls @ 100 mls/hr IV.SIG UNSCH PRN PRN Reason: Heavy bleeding Ibuprofen (Motrin) 800 mg PO Q8H PRN PRN Reason: cramping Last Admin: 05/03/18 07:51 Dose: 800 mg Ketorolac Tromethamine (Toradol Inj) 30 mg IM Q6H PRN PRN Reason: SEE LABEL COMMENTS Lidocaine HCl (Xylocaine 1% Inj) 0.1 ml I-DERMAL PRN PRN PRN Reason: For IV start Stop: 05/03/18 18:50 Measles/Mumps/Rubella Vaccine Live (M-M-R Ii Vaccine Inj) 0.5 ml SQ .ONCE ONE Stop: 05/03/18 16:01 Mineral Oil (Muri-Lube Oil) 10 ml TOPICAL PRN PRN PRN Reason: PRN perineal massage Naloxone HCl (Narcan Inj) 0.1 mg IV.PUSH Q2M PRN PRN Reason: for opiate reversal Ondansetron HCl (Zofran Inj) 4 mg IV.PUSH Q6H PRN PRN Reason: NAUSEA Ondansetron HCl (Zofran Inj) 4 mg IV.PUSH Q6H PRN PRN Reason: NAUSEA OR VOMITING Oxycodone/Acetaminophen (Percocet 5/325 Mg) 1 tab PO Q4H PRN PRN Reason: PAIN SCALE 3 TO 5 Last Admin: 05/02/18 21:52 Dose: 1 tab Oxycodone/Acetaminophen (Percocet 5/325 Mg) 2 tab PO Q4H PRN PRN Reason: PAIN SCALE 6 TO 10 Last Admin: 05/03/18 07:51 Dose: 2 tab Vit/Calcium/Iron/Folic Ac (Stuartnatal Plus 3) 1 tab PO DAILY [facility] Last Admin: 05/03/18 10:33 Dose: 1 tab Senna/Docusate Sodium (Francine-Colace) 2 tab PO Q12H PRN PRN Reason: CONSTIPATION Last Admin: 05/02/18 21:52 Dose: 2 tab Simethicone (Mylicon Chew) 80 mg PO QID PRN PRN Reason: FLATULENCE Sodium Chloride (Ns Flush) 2 ml IV.FLUSH BID [facility] Last Admin: 05/02/18 20:34 Dose: Not Given Sodium Chloride (Ns Flush) 2 ml IV.FLUSH PRN PRN PRN Reason: FLUSH AFTER USING IV ACCESS Zolpidem Tartrate (Ambien) 5 mg PO HS PRN PRN Reason: INSOMNIA Last Admin: 04/30/18 23:30 Dose: 5 mg Zolpidem Tartrate (Ambien) 5 mg PO HS PRN PRN Reason: INSOMNIA Assessment and Plan - Diagnosis (1) 41 weeks gestation of Code(s): Z3A.41 - 41 weeks gestation of Status: Acute (2) conceived through in vitro fertilization Code(s): O09.819 - Supervision of resulting from assisted reproductive technology, unspecified trimester Status: Chronic - Plan 32 yo G1 admitted 04/30/18 at 41wks by IVF (EDC 04/23/18) for labor induction due to postdates. 1) postdates IOL: cervidil overnight, will re-evaluate for additional induction methods as needed in AM; pt aware that cervical exam very unfavorable and induction may be long process, also possibility of ; consents signed 2) GBS positive - for PCN ppx 3) product of IVF: female embryo, had negative testing on embryo at [facility] prior to transfer 4) hx of trichomonas in : s/p treatment with negative test of cure 5) mild range BPs on admit: PIH workup ordered, no signs/symptoms of severity at this time, continue to monitor closely 6) status: female, vertex, 8/8 BPP in office 04/28/18; anterior placenta, vertex fetus; SANNA 11cm. dispo: not meeting criteria; anticipate 2-3d PP 05/01/18 dilating on pitocin but yet to descent turning frequently to help rotate to OA strip bears watching 05/02/18 doing well after section for failure to descend 10 hours ago. anticipate discharge POD 2-3 05/03/18 POD#1; Stable, doing well Discharge Planning: routine, 2-3d PP (2) conceived through in vitro fertilization Qualifiers: Trimester: third trimester Qualified Code(s): O09.813 - Supervision of resulting from assisted reproductive technology, third trimester
[2018-05-03] MEDS ORDERED: Diphtheria/Tetanus/Pertussis Vaccine Inj 0.5 ML Syringe IM ONE (16:00)
[2018-05-03] MEDS ORDERED: Measles/Mumps/Rubella Vaccine Inj 0.5 ML Vial SQ ONE (16:00)
--- NOTE | 2018-05-04 08:25 | P.PNOB ---
Subjective Post op day: 2 Interval history: Pt doing well, desires discharge Objective Vital Signs/I&O: Vital Signs 05/03/18 20:50 Temperature 97.5 F L Pulse Rate 78 Respiratory Rate 18 Blood Pressure 136/82 Result Diagrams: 05/03/18 04:43 05/01/18 05:43 Objective Remarks: GENERAL: Well-nourished, well-developed patient. CARDIOVASCULAR: Regular rate and rhythm without murmurs, gallops, or rubs. RESPIRATORY: Breath sounds equal bilaterally. No accessory muscle use. ABDOMEN/GI: Abdomen soft, non-tender, bowel sounds present. Incision: Clean, dry and intact. Fundus: Firm, non-tender at umbilicus. GENITOURINARY: Light to moderate bleeding. EXTREMITIES: No cyanosis, tr edema, non-tender, without signs of DVT. Medications and IVs: Active Medications Acetaminophen (Tylenol) 650 mg PO Q6H PRN PRN Reason: HEADACHE Citric Acid/Sodium Citrate (Sodium Citrate/Citric Acid Liq) 30 ml PO DIGITAL SALES MANAGER [facility] Stop: 05/04/18 18:59 Citric Acid/Sodium Citrate (Sodium Citrate/Citric Acid Liq) 30 ml PO DIGITAL SALES MANAGER [facility] Stop: 05/06/18 03:44 Fentanyl Citrate (Fentanyl Inj) 50 mcg IV.PUSH Q1H PRN PRN Reason: Pain Scale 3 - 5 Last Admin: 05/01/18 05:05 Dose: 50 mcg Fentanyl Citrate (Fentanyl Inj) 100 mcg IV.PUSH Q1H PRN PRN Reason: PAIN SCALE 6 TO 10 Lactated Ringer's (Lr 1000 Ml Inj) 1,000 mls @ 3,000 mls/hr IV.SIG UNSCH PRN PRN Reason: compromise or epidural Lactated Ringer's (Lr 1000 Ml Inj) 1,000 mls @ 125 mls/hr IV.CONT .Q8H [facility] Last Admin: 05/04/18 05:17 Dose: Not Given Sodium Chloride (Ns Inj) 500 mls @ 1,000 mls/hr IV.SIG UNSCH PRN PRN Reason: SEE LABEL COMMENTS Sodium Chloride (Ns Inj) 1,000 mls @ 100 mls/hr IV.CONT .Q10H PRN PRN Reason: SEE LABEL COMMENTS Oxytocin (Pitocin 30 Units/Ns 500 Ml Premix) 30 units in 500 mls @ 2 mls/hr IV.CONT TITRATE PRN; Protocol PRN Reason: For induction of labor Last Admin: 05/01/18 13:45 Dose: 2 milliunit/min, 2 mls/hr Fentanyl/Bupivacaine/Sodium Chlor (Fentanyl 2 Mcg-Bupiv 0.125% Epi) 150 mls @ 12 mls/hr EPIDURAL PRN PRN PRN Reason: for Labor Pain Last Admin: 05/02/18 01:15 Dose: 12 mls/hr Cefazolin Sodium/Dextrose (Ancef 2 Gm Premix Inj) 2 gm in 50 mls @ 100 mls/hr IV.SIG DIGITAL SALES MANAGER PRN PRN Reason: DIGITAL SALES MANAGER Stop: 05/06/18 03:41 Lactated Ringer's (Lr 1000 Ml Inj) 1,000 mls @ 150 mls/hr IV.CONT .Q6H40M [facility] Last Admin: 05/02/18 13:08 Dose: Not Given Oxytocin (Pitocin 30 Units/Ns 500 Ml Premix) 30 units in 500 mls @ 100 mls/hr IV.SIG UNSCH PRN PRN Reason: Heavy bleeding Ibuprofen (Motrin) 800 mg PO Q8H PRN PRN Reason: cramping Last Admin: 05/04/18 00:25 Dose: 800 mg Ketorolac Tromethamine (Toradol Inj) 30 mg IM Q6H PRN PRN Reason: SEE LABEL COMMENTS Mineral Oil (Muri-Lube Oil) 10 ml TOPICAL PRN PRN PRN Reason: PRN perineal massage Naloxone HCl (Narcan Inj) 0.1 mg IV.PUSH Q2M PRN PRN Reason: for opiate reversal Ondansetron HCl (Zofran Inj) 4 mg IV.PUSH Q6H PRN PRN Reason: NAUSEA Ondansetron HCl (Zofran Inj) 4 mg IV.PUSH Q6H PRN PRN Reason: NAUSEA OR VOMITING Oxycodone/Acetaminophen (Percocet 5/325 Mg) 1 tab PO Q4H PRN PRN Reason: PAIN SCALE 3 TO 5 Last Admin: 05/02/18 21:52 Dose: 1 tab Oxycodone/Acetaminophen (Percocet 5/325 Mg) 2 tab PO Q4H PRN PRN Reason: PAIN SCALE 6 TO 10 Last Admin: 05/04/18 07:15 Dose: 2 tab Vit/Calcium/Iron/Folic Ac (Stuartnatal Plus 3) 1 tab PO DAILY [facility] Last Admin: 05/03/18 10:33 Dose: 1 tab Senna/Docusate Sodium (Francine-Colace) 2 tab PO Q12H PRN PRN Reason: CONSTIPATION Last Admin: 05/02/18 21:52 Dose: 2 tab Simethicone (Mylicon Chew) 80 mg PO QID PRN PRN Reason: FLATULENCE Sodium Chloride (Ns Flush) 2 ml IV.FLUSH BID JOE[facility] Last Admin: 05/03/18 21:00 Dose: Not Given Sodium Chloride (Ns Flush) 2 ml IV.FLUSH PRN PRN PRN Reason: FLUSH AFTER USING IV ACCESS Zolpidem Tartrate (Ambien) 5 mg PO HS PRN PRN Reason: INSOMNIA Last Admin: 04/30/18 23:30 Dose: 5 mg Zolpidem Tartrate (Ambien) 5 mg PO HS PRN PRN Reason: INSOMNIA Assessment and Plan - Diagnosis (1) 41 weeks gestation of Code(s): Z3A.41 - 41 weeks gestation of Status: Acute (2) conceived through in vitro fertilization Code(s): O09.819 - Supervision of resulting from assisted reproductive technology, unspecified trimester Status: Chronic - Plan 32 yo G1 admitted 04/30/18 at 41wks by IVF (EDC 04/23/18) for labor induction due to postdates. 1) postdates IOL: cervidil overnight, will re-evaluate for additional induction methods as needed in AM; pt aware that cervical exam very unfavorable and induction may be long process, also possibility of ; consents signed 2) GBS positive - for PCN ppx 3) product of IVF: female embryo, had negative testing on embryo at [facility] prior to transfer 4) hx of trichomonas in : s/p treatment with negative test of cure 5) mild range BPs on admit: PIH workup ordered, no signs/symptoms of severity at this time, continue to monitor closely 6) status: female, vertex, 8/8 BPP in office 04/28/18; anterior placenta, vertex fetus; SANNA 11cm. dispo: not meeting criteria; anticipate 2-3d PP 05/01/18 dilating on pitocin but yet to descent turning frequently to help rotate to OA strip bears watching 05/02/18 doing well after section for failure to descend 10 hours ago. anticipate discharge POD 2-3 05/03/18 POD#1; Stable, doing well 05/04/18 POD 2, cont routine care. Dispo home today. Eforsce reviewed. Postop care reviewed. F/u 1 wk pp Discharge Planning: routine, 2-3d PP (2) conceived through in vitro fertilization Qualifiers: Trimester: third trimester Qualified Code(s): O09.813 - Supervision of resulting from assisted reproductive technology, third trimester
[2018-05-04] MEDS: Prenatal Vit/Ca/Iron/Folic Acid Tablet PO SCH (09:28)
[2018-05-04 09:30] VITALS: BP 149/90; PULSE 80; TEMP 97.6
== END 2018-05-04 15:59 | disposition home or self-care (01) | DRG 788 ==
LOC: H2E 18:04 → H1EA 05-02 06:16
PROVIDERS: ADMIT Obstetrics & Gynecology; ATTEND Obstetrics & Gynecology
CPT/HCPCS: 80053; 81001; 84550; 85025; 85027; 86900; 86901; 90471; G0008; J0131; J2540; J2590; J3010; J7120